=== PATIENT | male | born 1955 | race Caucasian/White ===

== ENCOUNTER → 2016-10-06 | Outpatient (REF) | payer BC ==
[~2016-10-06] MED LIST: ATOR40TA2 PO; BENA20TA2 PO; ESCI10TA49 PO; GEMF600T3 PO; LORA1TAB PO; MTP50T PO; ZLP10T PO
== END ==
LOC: LAB 12:13
PROVIDERS: ATTEND Family Medicine
DX: H53.19 Other subjective visual disturbances (principal); Z86.73 Personal history of transient ischemic attack (TIA), and cerebral infarction without residual deficits; F41.1 Generalized anxiety disorder; G47.09 Other insomnia
CPT/HCPCS: 85652; 86140